=== PATIENT | female | born 1970 | race Caucasian/White ===

== ENCOUNTER → 2017-10-24 12:20 | Outpatient (REF) | payer OTHER, SELFPAY ==
[2017-10-24 21:47] LABS: TSH (W/Ref FT4) 1.01 uIU/mL (0.358-3.74)
== END ==
LOC: NCHCN 12:20
PROVIDERS: PCP Family Medicine; Visit Provider Family Medicine
DX: E03.9 Hypothyroidism, unspecified (principal)
CPT/HCPCS: 84443

== ENCOUNTER 2017-12-24 18:23 | Outpatient (REF) | payer OTHER, SELFPAY ==
[2017-12-24 19:34] LABS: HCT 34.5 % (36.0-46.0); HGB 10.7 g/dL (12.0-15.5); Mean Corpuscular Hemoglobin 27.2 pg (27.0-33.0); Mean Corpuscular Volume 87.6 fL (80-95); Mean Platelet Volume 12.2 fL (8.0-11.0); Platelet Count 264 x1000/uL (130-400); RBC 3.94 m/cumm (4.00-5.20); RBC Distribution Width 15.6 % (11.7-14.6); White Blood Cell Count 7.22 k/cumm (4.4-10.8)
[2017-12-24 19:45] LABS: Iron 29 ug/dL (50-175); Total Iron Binding Capacity 509 ug/dL (250-450); Transferrin Sat 6 % (15-50)
[2017-12-24 19:58] LABS: Ferritin 10 ng/mL (8-388)
== END 2017-12-24 18:43 ==
LOC: NCHCN 18:23
PROVIDERS: PCP Family Medicine; Visit Provider Family Medicine
DX: D50.9 Iron deficiency anemia, unspecified (principal)
CPT/HCPCS: 85027; 82728; 83540; 83550

== ENCOUNTER 2018-01-28 13:20 | Outpatient (CLI) | payer OTHER, SELFPAY ==
--- NOTE | 2018-01-28 12:01 | DI.RAD_ITS ---
SYMPTOM/DIAGNOSIS: COMMUNITY ACQUIRED PNEUMONIA J18.9 CHEST X-RAY: PA and lateral. Comparison is 08/29/[address] scan 06/01/17 Heart size and pulmonary vasculature are within normal limits. The lungs are clear and well expanded. No effusions or pneumothoraces are identified. IMPRESSION: No acute pulmonary process.
== END 2018-01-28 13:40 ==
PROVIDERS: PCP Family Medicine; Visit Provider Family Medicine
DX: J18.9 Pneumonia, unspecified organism (principal)
CPT/HCPCS: 71046

== ENCOUNTER 2018-03-04 10:02 | Outpatient (REF) | payer OTHER, SELFPAY ==
[2018-03-06 11:59] LABS: IgA 233 mg/dL (85-499); Interpretation SEE COMMENTS; Tissue Transglutaminase IgA <1.2 U/mL (<4.0)
== END 2018-03-04 10:22 ==
LOC: NCHCN 10:02
PROVIDERS: PCP Family Medicine; Visit Provider Family Medicine
DX: D50.9 Iron deficiency anemia, unspecified (principal)
CPT/HCPCS: 82784; 83516

== ENCOUNTER 2018-05-23 12:12 | Outpatient (REF) | payer OTHER, SELFPAY ==
[2018-05-23 12:35] LABS: Abs Immature Grans 0.01 k/cumm (0.0-0.09); Absolute Basophil Count 0.03 k/cumm (0.0-0.2); Absolute Eosinophil Count 0.03 k/cumm (0.0-0.7); Absolute Lymphocyte Count 1.26 k/cumm (1.2-3.4); Absolute Monocyte Count 0.85 k/cumm (0.11-0.7); Absolute Neutrophil Count 2.84 k/cumm (1.2-6.7); Basophils % 0.6; Eosinophils % 0.6; HCT 33.7 % (36.0-46.0); HGB 10.6 g/dL (12.0-15.5); Immature Grans % 0.2; Lymphocytes % 25.1; Mean Corp. HGB Concentration 31.5 g/dL (32.0-36.0); Mean Corpuscular Volume 88.9 fL (80-95); Mean Platelet Volume 11.2 fL (8.0-11.0); Monocytes % 16.9; Neutrophils % 56.6; Platelet Count 236 x1000/uL (130-400); RBC 3.79 m/cumm (4.00-5.20); RBC Distribution Width 16.5 % (11.7-14.6); White Blood Cell Count 5.02 k/cumm (4.4-10.8)
== END 2018-05-23 12:32 ==
LOC: NCHCN 12:12
PROVIDERS: PCP Family Medicine; Visit Provider Nurse Practitioner Family
DX: D50.9 Iron deficiency anemia, unspecified (principal)
CPT/HCPCS: 85025

== ENCOUNTER 2018-06-12 12:28 | Outpatient (REF) | payer OTHER, SELFPAY ==
[2018-06-13 11:34] LABS: TSH 1.44 uIU/mL (0.358-3.74)
[2018-06-13 14:58] LABS: Chlamydia Result Negative; GC Result Negative; Specimen Description URINE
[2018-06-14 12:21] LABS: Syphilis Serology (RPR) Negative (Negative)
[2018-06-14 12:50] LABS: HIV-1/2 Ag & Ab Screen Negative (NEGAT)
[2018-06-17 11:31] LABS: Hepatitis B Surface Ag Negative (NEGAT)
== END 2018-06-12 12:48 ==
LOC: NCHCN 12:28
PROVIDERS: PCP Family Medicine; Visit Provider Family Medicine
DX: E03.9 Hypothyroidism, unspecified (principal); Z00.00 Encounter for general adult medical examination without abnormal findings; Z11.4 Encounter for screening for human immunodeficiency virus [HIV]; Z11.59 Encounter for screening for other viral diseases; D50.9 Iron deficiency anemia, unspecified; Z11.3 Encounter for screening for infections with a predominantly sexual mode of transmission
CPT/HCPCS: 87340; 87389; 87491; 87591; 84443; 86592

== ENCOUNTER 2018-06-27 18:09 | Outpatient (REF) | payer OTHER, SELFPAY ==
[2018-06-27 19:01] LABS: Anion Gap 10.5 mmol/L (3-11); BUN 21 mg/dL (7-18); CO2 26.5 mmol/L (21.0-32.0); CREATININE 0.84 mg/dL (0.55-1.02); Calcium 9.6 mg/dL (8.5-10.1); Chloride 97 mmol/L (98-107); Glucose 95 mg/dL (70-100); Sodium 134 mmol/L (136-145)
== END 2018-06-27 18:29 ==
LOC: NCHCN 18:09
PROVIDERS: PCP Family Medicine; Visit Provider Family Medicine
DX: Z00.00 Encounter for general adult medical examination without abnormal findings (principal)
CPT/HCPCS: 80048

== ENCOUNTER 2019-05-06 14:26 | Outpatient (CLI) | payer BC, SELFPAY ==
--- NOTE | 2019-05-06 14:38 | DI.RAD_ITS ---
EXAM: XR SHOULDER RT COMPLETE 2+V INDICATION: R SHOULDER PAIN. COMPARISON: No exams were available for comparison TECHNIQUE: 2D digital imaging was performed. FINDINGS: There is spurring at the AC joint. There is also lucency in the distal clavicle. There is mild spur ring at the glenohumeral joint, which is well maintained. There is a small calcification or spur at the greater tuberosity. IMPRESSION: AC joint degenerative changes and arthritis. Calcific tendinosis.
== END 2019-05-06 14:46 ==
PROVIDERS: PCP Family Medicine; Visit Provider Physician Assistant
DX: M25.511 Pain in right shoulder (principal); M19.011 Primary osteoarthritis, right shoulder; M75.31 Calcific tendinitis of right shoulder
CPT/HCPCS: 73030

== ENCOUNTER 2019-12-09 11:43 | Outpatient (REF) | payer OTHER, SELFPAY ==
[2019-12-09 19:05] LABS: Anion Gap 7.5 mmol/L (3-11); BUN 13 mg/dL (7-18); CO2 29.5 mmol/L (21.0-32.0); CREATININE 0.94 mg/dL (0.55-1.02); Calcium 9.2 mg/dL (8.5-10.1); Calculated LDL 135 mg/dL (<100); Chloride 102 mmol/L (98-107); Cholesterol 213 mg/dL (<200); Glucose 94 mg/dL (74-106); HDL Cholesterol 51 mg/dL (40-60); Hemoglobin A1C 5.9 % (<5.7); Potassium 3.9 mmol/L (3.5-5.1); Sodium 139 mmol/L (136-145); TSH (W/Ref FT4) 1.17 uIU/mL (0.36-3.74); Triglyceride 135 mg/dL (<150)
[2019-12-09 20:26] LABS: Iron 24 ug/dL (50-170); Total Iron Binding Capacity 418 ug/dL (250-450); Transferrin Sat 6 % (15-50)
== END 2019-12-09 12:03 ==
LOC: NCHCN 11:43
PROVIDERS: PCP Family Medicine; Visit Provider Family Medicine
DX: E03.9 Hypothyroidism, unspecified (principal); Z00.00 Encounter for general adult medical examination without abnormal findings; I10 Essential (primary) hypertension; D50.9 Iron deficiency anemia, unspecified; E78.5 Hyperlipidemia, unspecified
CPT/HCPCS: 80048; 80061; 83036; 83540; 83550; 84443

== ENCOUNTER 2020-03-02 01:12 | Outpatient (CLI) | payer OTHER, SELFPAY ==
--- NOTE | 2020-03-02 08:47 | DI.MAMMO_ITS ---
EXAM: MAMMO SCREENING CLINICAL HISTORY: SCREENING, ADULT PREVENTATIVE, CARE,Z00.00 TECHNIQUE: Mammograms were interpreted according to the usual protocol including computer analysis w [employer] CAD system, tomosynthesis and C-view imaging. COMPARISON: FINDINGS: The breasts are moderate density with fairly symmetrical distribution of fibroglandular tissue. Ther e is an area of nodularity projected in the superior cysts portion of the right breast anteriorly in approximately the 12 o'clock position, this may represent a skin lesion but intramammary mass is not excluded. This was not present on prior examination April 2015. No other significant change seen . No clumped microcalcification noted. IMPRESSION: Questionable finding new right breast mass versus skin lesion. Additional mammographic views of the right breast recommended with skin markers and spot compression views if indicated. Additionally, ri t breast ultrasound may be performed if indicated at the time of the additional mammographic views. BI-RADS Category 0 - Assessment Incomplete: Need additional imaging evaluation Breast Density - Category B - Scattered areas of fibroglandular density
== END 2020-03-02 01:32 ==
PROVIDERS: PCP Family Medicine; Visit Provider Family Medicine
DX: Z12.31 Encounter for screening mammogram for malignant neoplasm of breast (principal); R92.8 Other abnormal and inconclusive findings on diagnostic imaging of breast; Z00.00 Encounter for general adult medical examination without abnormal findings
CPT/HCPCS: 77063; 77067

== ENCOUNTER 2020-03-05 01:16 | Outpatient (CLI) | payer OTHER, SELFPAY ==
--- NOTE | 2020-03-05 | DI.MAMMO_ITS ---
EXAM: MG MAMMO SCREEN CALL BACK UNI CLINICAL HISTORY: F/U MAMMO, AREA OF NODULARITY, ? SKIN LESION OR INTRAMAMMARY MASS TECHNIQUE: Spot compression views and tomographic imaging were performed. COMPARISON: 2016 FINDINGS: The breasts are composed of scattered fibroglandular densities, Breast Density category B. There is a persistent smoothly marginated nodule seen in the central superior right breast. There is no evidence of a skin mole. Please see separate ultrasound report. IMPRESSION: BI-RADS Category 3 - 6 month - Probably Benign Finding: Recommend follow-up ultrasound in 6 months. Breast Density - Category B, scattered fibroglandular densities.
--- NOTE | 2020-03-05 | DI.US_ITS ---
EXAM: US BREAST RT LIMITED CLINICAL HISTORY: F/U MAMMO, AREA OF NODULARITY - SKIN LESION VS MASS TECHNIQUE: Ultrasound right breast performed using standard protocol. COMPARISON: MG Screening Bilat Mammo from 04/26/2015 MG Screening Bilat Mammo from 05/03/2015 MG MG MAMMO SCREENING from 03/02/2020 MG MG MAMMO SCREEN CALL BACK UNI from 03/05/2020 FINDINGS: In the 12 o'clock position, 5 centimeters above the nipple, there is a cyst containing some internal debris. There is no vascular flow. It measures 1.5 x 0.7 x 1.4 cm and corresponds to the mammograph ic abnormality. A few other small nodules were seen which could represent small lymph nodes. No solid masses, hypoechoic foci, areas of abnormal shadowing, or areas of skin thickening. IMPRESSION: No sonographically suspicious finding. BI-RADS Category 3 - 6 month - Probably Benign Finding: Recommend follow-up ultrasound in 6 months DATA REPOSITORY:
== END 2020-03-05 01:36 ==
PROVIDERS: PCP Family Medicine; Visit Provider Family Medicine
DX: R92.8 Other abnormal and inconclusive findings on diagnostic imaging of breast (principal); N60.01 Solitary cyst of right breast
CPT/HCPCS: 76642; 77063; 77067

== ENCOUNTER 2020-05-11 09:33 | Outpatient (REF) | payer OTHER, SELFPAY ==
--- NOTE | 2020-05-11 09:30 | ENDOMET_PTH ---
PATIENT: Yarely Gao LOC: [facility] U#:[id number] AGE/SX: 49/F ROOM: RE05/11/[address]: Rosangela Bower : 1970 BED: DIS: 05/11/2020 SPEC #: [id number] RECD: 05/11/20 12:36 STATUS: KIRT REQ #: [id number] CIELO: 05/11/20 09:[address]: Rosangela Bower DEPT: Surgical Specimen RECD BY: Brianna Camara ENTERED: 05/11/20 12:36 SP TYPE: Endomet OTHR DR: Hosea Bella Tissues: 1 - ENDOMETRIUM BX/ADI Procedures: GROSS AND MICRO LEVEL 4 Comments: [id number]
== END 2020-05-11 09:34 | disposition home or self-care (01) ==
LOC: LBN 09:33
PROVIDERS: PCP Family Medicine; Visit Provider Obstetrics & Gynecology Gynecology
DX: N85.8 Other specified noninflammatory disorders of uterus (principal); N83.8 Other noninflammatory disorders of ovary, fallopian tube and broad ligament; N93.8 Other specified abnormal uterine and vaginal bleeding
CPT/HCPCS: 88305

== ENCOUNTER 2020-07-08 12:40 | Outpatient (REF) | payer OTHER, SELFPAY ==
[2020-07-08 14:56] LABS: Bilirubin Negative (Negative); Blood Negative (Negative); Clarity Clear (Clear); Glucose Negative (Negative); Ketones Negative (Negative); Leukocyte Esterase Negative (Negative); Nitrite Negative (Negative); Specific Gravity 1.015 (1.005-1.025); Urobilinogen 0.2 EU/dL (Up TO 0.2); pH 6.5 (5-8)
[2020-07-08 16:01] LABS: Abs Immature Grans 0.01 10^3/uL (0.0-0.06); Absolute Basophil Count 0.05 10^3/uL (0.0-0.2); Absolute Eosinophil Count 0.04 10^3/uL (0.0-0.7); Absolute Lymphocyte Count 1.69 10^3/uL (1.2-3.4); Absolute Monocyte Count 0.79 10^3/uL (0.1-0.8); Basophils % 0.7; Eosinophils % 0.5; HCT 40.3 % (36.0-46.0); HGB 13.1 g/dL (11.2-15.7); Immature Grans % 0.1; Lymphocytes % 23.2; MCH 27.4 pg (27.0-33.0); MCHC 32.5 % (32.0-36.0); MCV 84.3 fL (80-95); MPV 13.4 fL (8.0-11.0); Monocytes % 10.9; Neutrophils % 64.6; Nucleated RBC 0 %; Platelet Count 236 10^3/uL (130-400); RBC 4.78 10^6/uL (3.93-5.22); RDW 17.5 % (11.7-14.6); RDW-SD 53.5 fL; WBC 7.28 10^3/uL (4.4-10.8)
[2020-07-08 16:43] LABS: ALT 27 U/L (14-59); AST 15 U/L (15-37); Albumin 4.2 g/dL (3.4-5.0); Alkaline Phosphatase 69 U/L (46-116); Anion Gap 11.7 mmol/L (3-11); BUN 15 mg/dL (7-18); Bilirubin, Total 0.3 mg/dL (0.2-1.0); CO2 27.3 mmol/L (21.0-32.0); CREATININE 0.8 mg/dL (0.55-1.02); Calcium 9.5 mg/dL (8.5-10.1); Chloride 102 mmol/L (98-107); Glucose 93 mg/dL (74-106); Sodium 141 mmol/L (136-145); Total Protein 7.4 g/dL (6.4-8.2); Uric Acid 4.5 mg/dL (2.6-6.0)
== END 2020-07-08 12:41 | disposition home or self-care (01) ==
LOC: LBN 12:40
PROVIDERS: PCP Family Medicine; Visit Provider Physician Assistant
DX: R10.11 Right upper quadrant pain (principal); R10.31 Right lower quadrant pain; R82.998 Other abnormal findings in urine; N39.0 Urinary tract infection, site not specified; M54.5 Low back pain; M79.674 Pain in right toe(s)
CPT/HCPCS: 80053; 81003; 84550; 85025; 87086

== ENCOUNTER 2020-11-22 11:22 | Outpatient (CLI) | payer OTHER, SELFPAY ==
--- NOTE | 2020-11-22 11:30 | DI.RAD_ITS ---
Exam(s) XR ANKLE LT COMPLETE XR HEEL LT OS CALCIS EXAM: XR ANKLE LT COMPLETE and XR heel LT os calcis CLINICAL HISTORY: injury to left ankle and heel, pain, r/o fx m25.572 TECHNIQUE: 2D digital imaging was performed. COMPARISON: No previous for comparison. FINDINGS: BONES: No acute fracture is present. No bony destructive lesion is seen. JOINTS:The ankle mortise is normally aligned. SOFT TISSUE: Normal. IMPRESSION: No acute fracture or dislocation. DATA REPOSITORY: RADIATION DOSE DELIVERED:
== END 2020-11-22 11:42 ==
PROVIDERS: PCP Family Medicine; Visit Provider Physician Assistant
DX: M25.572 Pain in left ankle and joints of left foot (principal)
CPT/HCPCS: 73610; 73650

== ENCOUNTER 2020-12-01 06:13 | Emergency (ER) | payer OTHER, SELFPAY ==
[2020-12-01 06:16] VITALS: BP 149/75; PULSE 75; RESP 20; TEMP 36.2; O2SAT 97
--- NOTE | 2020-12-01 06:30 | DI.RAD_ITS ---
Exam(s) XR ANKLE LT COMPLETE EXAM: XR ANKLE LT COMPLETE CLINICAL HISTORY: lateral/posterior ankle pain. TECHNIQUE: 2D digital imaging was performed. COMPARISON: CR XR HEEL LT OS CALCIS from 11/22/2020 FINDINGS: Benign bone island is noted in the calcaneus. There is no evidence of fracture or widening of the mo rtise. Talar dome appears unremarkable. No degenerative changes evident. No osseous lesions. IMPRESSION: DATA REPOSITORY: RADIATION DOSE DELIVERED:
--- NOTE | 2020-12-01 06:50 | W.ED.GENAD ---
Discharge Plan Disposition Patient Disposition: HOME Condition: Good Discharge Details Clinical Impression: Acute left ankle pain Primary Care Provider: Hosea Bella ED Provider: Ray Cain Home Meds and New Rx's Prescriptions: Continued spironolactone 25 mg tablet 25 mg PO DAILY RF: 0 hydrochlorothiazide 12.5 mg tablet 25 mg PO DAILY RF: 0 clonidine HCl 0.1 mg tablet 0.1 mg PO QHS Qty: 30 RF: 1 cyclobenzaprine 10 mg tablet 10 mg PO TID PRN (Reason: muscle spasm) Qty: 10 RF: 0 multivitamin [Daily Multi-Vitamin] 1 EACH tablet 1 ea PO daily prn RF: 0 riboflavin (vitamin B2) 400 MG tablet 400 mg PO DAILY RF: 0 polyethylene glycol 3350 [Miralax] 17 gram powder in packet 17 g PO PRN Qty: 255 RF: 0 levothyroxine [Synthroid] 88 MCG tablet 88 mcg PO DAILY RF: 0 Discharge Instructions Instructions: Ankle Sprain (ED) Additional Instructions: At this time your x-ray shows no significant abnormality for the bones. I suspect there is a combination of a bony contusion as well as a mild ligamentous injury. For the next week please remain nonweightbearing with your crutches, then gradually transition to weightbearing as tolerated with your walking boot. Take Tylenol and Motrin as needed for pain. Ice your ankle regularly. We have placed a referral with the music therapy specialist. They will contact you for the appointment date. If you notice any worsening of your symptoms, or any new symptoms such as vomiting, diarrhea, fever, chills, shortness of breath, chest pain, numbness, weakness, or fainting , please return immediately to the emergency department for reevaluation. Please follow up with your primary care provider as soon as possible for reassessment and reevaluation. As always, it was a pleasure participating in your medical care today. Referrals: Hosea Waters MD [ [facility] STAFF PHYSICIAN] - Discharge Data Discharge Date/Time-TO BE ENTERED AT DEPARTURE: 12/01/20 07:39 Medical Decision Making 50-year-old female presents today with evaluate for evaluation of left ankle pain. About 1 month ago the patient got a dog leash wrapped around her ankle, because of pain at that time. Walking boot was notably helpful then, the ventral x-ray was negative for acute process. Patient had been doing well until today when she was walking down her stairs and slipped and felt like she again twisted her ankle. She did not hear any pop. She denies any other significant trauma. Pain is located at the medial aspect of the left ankle. She has mild pain with movement but no significant pain with weightbearing. She denies pain in the foot or in the tib/fib. The walking boot which used to help no longer gives any significant help for pain relief. Patient has no other complaints at this time. No other modifying factors. Exam demonstrates normal strength in the foot, and ankle. Achilles tendon appears to have normal strength and no evidence of rupture. No significant tenderness on palpation. The mechanism slightly atypical for a bony injury however with her pain mainly being her weightbearing and concerned. We will get an x-ray to rule out acute process. Additionally to this I do feel that she has high likelihood of ligamentous or tendon injury in general with her previous injury now being worsened by this new episode. Will give crutches, and recommend nonweightbearing for the next 1 to 2 weeks with slow gradual transition to weightbearing as tolerated with her walking boot. Will place orthopedic referral for further assessment. Patient has established care with Dr. Waters already for her knee. FINDINGS: Benign bone island is noted in the calcaneus. There is no evidence of fracture or widening of the mortise. Talar dome appears unremarkable. No degenerative changes evident. No osseous lesions. HPI General Date/Time Provider Initiated Documentation: 12/01/20 06:14. HPI Narrative: 50-year-old female presents today with evaluate for evaluation of left ankle pain. About 1 month ago the patient got a dog leash wrapped around her ankle, because of pain at that time. Walking boot was notably helpful then, the ventral x-ray was negative for acute process. Patient had been doing well until today when she was walking down her stairs and slipped and felt like she again twisted her ankle. She did not hear any pop. She denies any other significant trauma. Pain is located at the medial aspect of the left ankle. She has mild pain with movement but no significant pain with weightbearing. She denies pain in the foot or in the tib/fib. The walking boot which used to help no longer gives any significant help for pain relief. Patient has no other complaints at this time. No other modifying factors. Related Data Home Medications Medication Instructions Recorded Confirmed multivitamin [Daily Multi-Vitamin] 1 ea PO daily prn 05/18/14 12/01/20 riboflavin (vitamin B2) 400 mg PO DAILY 06/14/17 12/01/20 levothyroxine [Synthroid] 88 mcg PO DAILY 07/13/17 12/01/20 spironolactone 25 mg tablet 25 mg PO DAILY 04/21/19 12/01/20 clonidine HCl 0.1 mg tablet 0.1 mg PO QHS #30 tab 05/11/20 11/20/20 hydrochlorothiazide 12.5 mg tablet 25 mg PO DAILY tab 05/11/20 12/01/20 polyethylene glycol 3350 17 gram 17 g PO PRN #255 g 05/11/20 12/01/20 oral powder packet cyclobenzaprine 10 mg tablet 10 mg PO TID PRN #10 tab 07/08/20 11/20/20 Previous Rx's Medication Instructions Recorded clonidine HCl 0.1 mg tablet 0.1 mg PO QHS #30 tab 05/11/20 cyclobenzaprine 10 mg tablet 10 mg PO TID PRN #10 tab 07/08/20 Allergies Allergy/AdvReac Type Severity Reaction Status Date / Time ranitidine Allergy Severe MOUTH Verified 12/01/20 06:23 SWELLS lisinopril Allergy Intermediate Verified 12/01/20 06:23 walnuts AdvReac Intermediate rash, Uncoded 12/01/20 06:23 hives, throat tightness General Stated Complaint: Orthopedic IMELDA: 4 Review of Systems All systems reviewed & are unremarkable except as noted in HPI and below PFSH Medical History Abnormal uterine bleeding 2016 bleeding between cycles. EMBx weakly prolif endometrium. Nl appearing uterus. 03/2019 menorrhagia with anemia. ADD (attention deficit disorder) Anemia Aphthae, oral Arthritis Endometriosis of pelvis Hyperlipidemia Hypertension Hypothyroidism Knee pain, chronic Migraine headache with aura Mucinous adenocarcinoma of gastrointestinal tract Multiple skin nodules Post-traumatic stress syndrome Subacromial bursitis Vasomotor symptoms due to menopause 05/11/20. Clonidine 0.1mg Surgical History Appendectomy (01/01/15) ERIC Endometrial Biopsy 05/18/14-NEG History of tubal ligation Family History Mother Essential hypertension Asthma Father Diabetes Essential hypertension Hyperlipidemia Sister Graves disease Heart disease Pacemaker 03/2013 Sarcoidosis Grandfather Heart disease Stroke Grandfather Diabetes Grandmother Essential hypertension Heart disease Grandmother Graves disease Diabetes Social History Smoking/Tobacco Use Status: Former Tobacco Use Smoking risk assessment performed?: Yes Alcohol Intake: current Alcohol Intake frequency: holidays/special occasions only Drug use: Never Current gender identity: female Do you feel safe at home: Yes Do you feel safe in your relationship?: Yes Exam Narrative Exam Narrative: 1.Const: Well-nourished, Well-developed, appearing stated age 2.Eyes: PERRL, no conjunctival injection, and symmetrical lids. 3.ENT: Atraumatic external nose and ears. Moist MM. Neck: Symmetric, trachea midline, No thyromegaly. 4.CVS: +S1/S2, No murmurs or gallops. Peripheral pulses 2+ and equal in all extremities. Brisk capillary refill in all extremities. 5.RESP: Unlabored respiratory effort. Clear to auscultation bilaterally. No wheezes rales or rhonchi 6.GI: Soft, Nontender/Nondistended, No hepatosplenomegaly. No guarding or rebound. 7.MSK: Patient's left ankle demonstrates minimal swelling of the medial aspect, minimal pain with palpation. Patient demonstrates good flexion and extension of the foot, as well as flexion and extension of all toes including the great toe. Patient demonstrates good eversion and inversion strength of the foot as well. Mild pain with dorsiflexion, inversion, and plantar flexion. Patient has notable pain with weightbearing. Location of pain appears to be between the talus and the calcaneus. Sensation intact throughout. Bedside ultrasound demonstrates what appears to be an intact Achilles tendon. Normal strength of the foot. 8.Skin: Warm, Dry. No rashes or lesions. 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 Sensation grossly intact, no focal neurologic deficits. 10.Psych: (AAO) x3. Appropriate mood and affect Course Vital Signs Vital signs: Vital Signs Temperature 36.2 C L 12/01/20 06:16 Pulse 75 12/01/20 06:16 Respiratory Rate 20 12/01/20 06:16 Blood Pressure 149/75 H 12/01/20 06:16 Pulse Oximetry 97 12/01/20 06:16 Temperature 36.2 C L 12/01/20 06:16 Temperature Source Temporal Artery Scan 12/01/20 06:16 Pulse 75 12/01/20 06:16 Respiratory Rate 20 12/01/20 06:16 Respiratory Effort Non-Labored 12/01/20 06:21 Blood Pressure 149/75 H 12/01/20 06:16 Blood Pressure Position Sitting 12/01/20 06:16 Pulse Oximetry 97 12/01/20 06:16 Oxygen Delivery Method Room Air 12/01/20 06:16 Oxygen Flow Rate 0 12/01/20 06:16 Pain Level 5 12/01/20 06:16
--- NOTE | 2020-12-01 08:50 | DI.VRAD_ITS ---
PROCEDURE INFORMATION: Exam: XR Left Ankle Exam date and time: 12/01/2020 6:34 AM Age: 50 years old Clinical indication: Injury or trauma; Fall; Blunt trauma; Left; Injury date: 12/01/20; Injury details: Lateral/posterior ankle pain TECHNIQUE: Imaging protocol: XR Left ankle. Views: 3 or more views. COMPARISON: CR XR ANKLE LT COMPLETE 11/22/2020 2:46 PM FINDINGS: Bones/joints: Normal. Soft tissues: Normal. IMPRESSION: No acute findings. Dictated and Authenticated by: Cali Hall MD. Ordering:ANY Bell MD
== END 2020-12-01 07:39 | disposition home or self-care (01) ==
PROVIDERS: Emergency Provider Student in an Organized Health Care Education/Training Program; PCP Family Medicine
DX: M25.572 Pain in left ankle and joints of left foot (principal); X50.9XXA Other and unspecified overexertion or strenuous movements or postures, initial encounter
CPT/HCPCS: 99283; 73610

== ENCOUNTER 2020-12-14 18:38 | Outpatient (REF) | payer OTHER, SELFPAY ==
[2020-12-14 22:06] LABS: Iron 81 ug/dL (50-170); Total Iron Binding Capacity 390 ug/dL (250-450); Transferrin Sat 21 % (15-50)
[2020-12-14 22:07] LABS: ALT 35 U/L (14-59); AST 19 U/L (15-37); Albumin 4.3 g/dL (3.4-5.0); Alkaline Phosphatase 82 U/L (46-116); Anion Gap 11.6 mmol/L (3-11); BUN 18 mg/dL (7-18); Bilirubin, Total 0.2 mg/dL (0.2-1.0); CO2 30.4 mmol/L (21.0-32.0); Calcium 9.2 mg/dL (8.5-10.1); Chloride 101 mmol/L (98-107); Estimated GFR 58.45 (mL/min/1.73m2); Glucose 90 mg/dL (74-106); Potassium 3.8 mmol/L (3.5-5.1); Sodium 143 mmol/L (136-145); TSH (W/Ref FT4) 0.29 uIU/mL (0.36-3.74); Total Protein 7.8 g/dL (6.4-8.2)
[2020-12-14 22:09] LABS: Hemoglobin A1C 5.9 % (<5.7)
[2020-12-14 22:23] LABS: FREE T4 1.22 ng/dL (0.76-1.46)
== END 2020-12-14 18:39 | disposition home or self-care (01) ==
LOC: LBN 18:38
PROVIDERS: PCP Family Medicine; Visit Provider Family Medicine
DX: E03.9 Hypothyroidism, unspecified (principal); D50.9 Iron deficiency anemia, unspecified; Z00.00 Encounter for general adult medical examination without abnormal findings
CPT/HCPCS: 80053; 83036; 83540; 83550; 84439; 84443

== ENCOUNTER 2020-12-20 08:30 | Outpatient (REF) | payer OTHER, SELFPAY | END 2020-12-20 08:31 | disposition home or self-care (01) | LOC: LBN 08:30 | PROVIDERS: PCP Family Medicine; Visit Provider Family Medicine | DX: B35.1 Tinea unguium (principal) | CPT/HCPCS: 87101; 87206 ==

== ENCOUNTER 2021-01-24 09:24 | Outpatient (CLI) | payer OTHER, SELFPAY ==
--- NOTE | 2021-01-24 08:30 | DI.RAD_ITS ---
Exam(s) XR FOOT LT LIMITED EXAM: XR FOOT LT LIMITED CLINICAL HISTORY: left ankle pain. TECHNIQUE: 2D digital imaging was performed. COMPARISON: CR,XR XR ANKLE LT COMPLETE from 12/01/2020 CR,XR XR ANKLE LT COMPLETE from 12/01/2020 FINDINGS: Single lateral left foot perform weight-bearing reveals no evidence of fracture nor prominent pes yimi nus. Benign bone island in the calcaneus is unchanged from ankle films of November 2020. There is no inferior calcaneal spur. No obvious osseous tarsal coalition. IMPRESSION: DATA REPOSITORY: RADIATION DOSE DELIVERED:
== END 2021-01-24 09:25 | disposition home or self-care (01) ==
LOC: DIORS 09:24
PROVIDERS: PCP Family Medicine; Referring Provider Family Medicine; Visit Provider Physician Assistant
DX: M25.572 Pain in left ankle and joints of left foot (principal)
CPT/HCPCS: 73620

== ENCOUNTER 2021-02-08 08:36 | Outpatient (CLI) | payer OTHER, SELFPAY ==
--- NOTE | 2021-02-08 15:04 | DI.MRI_ITS ---
Exam(s) MR LOWER JOINT LT WO EXAM: MR LOWER JOINT LT WO CLINICAL HISTORY: PAIN, INSUFFICIENCY LT POSTERIOR TIBIAL TENDON, ACUTE LT ANKLE PAIN. TECHNIQUE: Multiplanar multisequence MRI was performed.. COMPARISON: Plain films left ankle 01 December 2020 FINDINGS: BONES/JOINTS: No evidence of fracture. No evidence of bone lesion. No joint space narrowing identifie d. A small tibiotalar joint effusion is identified. LIGAMENTS: The deltoid and spring ligaments are intact without definite associated edema. MUSCULOTENDINOUS STRUCTURES: No tendon thickening or focal tear. Minimal amount of fluid around the distal tibialis posterior and flexor digitorum tendons. The planar fascia is unremarkable. Peroneal tendons and anterior SOFT TISSUES: Unremarkable. OTHER FINDINGS: None. IMPRESSION: Small tibiotalar joint effusion. Minimal amount of fluid adjacent to the distal tibialis posterior and flexor digitorum tendons withou t visible tendinosis or focal tear. DATA REPOSITORY:
== END 2021-02-08 08:56 ==
PROVIDERS: PCP Family Medicine; Visit Provider Student in an Organized Health Care Education/Training Program
DX: M79.605 Pain in left leg (principal); M25.572 Pain in left ankle and joints of left foot; M25.472 Effusion, left ankle; M67.874 Other specified disorders of tendon, left ankle and foot
CPT/HCPCS: 73721

== ENCOUNTER 2021-02-23 13:45 | Outpatient (REF) | payer OTHER, SELFPAY ==
[2021-02-24 02:16] LABS: COVID-19 RT-PCR UVMMC Result Negative (Negative)
== END 2021-02-23 13:46 | disposition home or self-care (01) ==
LOC: LBN 13:45
PROVIDERS: PCP Family Medicine; Visit Provider Nurse Practitioner Family
DX: Z20.822 Contact with and (suspected) exposure to COVID-19 (principal)
CPT/HCPCS: U0003

== ENCOUNTER 2021-04-05 00:51 | Outpatient (CLI) | payer OTHER, SELFPAY ==
--- NOTE | 2021-04-05 | DI.MAMMO_ITS ---
Exam(s) MAMMO SCREENING EXAM: MAMMO SCREENING CLINICAL HISTORY: SCREENING, ADULT PREVENTIVE CARE,Z00.00 TECHNIQUE: Mammograms were interpreted according to the usual protocol including computer analysis w [employer] CAD system, tomosynthesis and C-view imaging. COMPARISON: FINDINGS: The breasts are of moderate density with fairly symmetrical distribution of fibroglandular tissue. N o dominant mass or clumped microcalcification is identified in either breast. The current examinatio n is compared with previous examinations including February 2020 and there has been no gross interval change in appearance in comparison with the prior studies. IMPRESSION: No specific evidence of malignancy at this time. Routine screening examinations are suggested at yea rly intervals in this age group according to the ACS ACR guidelines. BI-RADS Category 1 - Negative Breast Density - Category B - Scattered areas of fibroglandular density
== END 2021-04-05 01:11 ==
PROVIDERS: PCP Family Medicine; Visit Provider Family Medicine
DX: Z12.31 Encounter for screening mammogram for malignant neoplasm of breast (principal)
CPT/HCPCS: 77063; 77067

== ENCOUNTER 2021-04-27 11:52 | Outpatient (REF) | payer OTHER, SELFPAY ==
[2021-04-28 14:19] LABS: COVID-19 RT-PCR UVMMC Result Negative (Negative)
== END 2021-04-27 11:53 | disposition home or self-care (01) ==
LOC: LBN 11:52
PROVIDERS: PCP Family Medicine; Visit Provider Physician Assistant
DX: Z20.822 Contact with and (suspected) exposure to COVID-19 (principal)
CPT/HCPCS: U0003

== ENCOUNTER 2021-04-28 15:31 | Outpatient (REF) | payer OTHER, SELFPAY ==
[2021-04-30 01:24] LABS: COVID-19 RT-PCR UVMMC Result Negative (Negative)
== END 2021-04-28 15:32 | disposition home or self-care (01) ==
LOC: LBN 15:31
PROVIDERS: PCP Family Medicine; Visit Provider Physician Assistant
DX: Z20.822 Contact with and (suspected) exposure to COVID-19 (principal)
CPT/HCPCS: U0003

== ENCOUNTER 2021-09-20 15:25 | Outpatient (REF) | payer OTHER, SELFPAY ==
[2021-09-20 14:46] LABS: HCT 40.3 % (36.0-46.0); HGB 13.7 g/dL (11.2-15.7); MCH 31.1 pg (27.0-33.0); MCV 92 fL (80-95); MPV 12.2 fL (8.0-11.0); Platelet Count 226 10^3/uL (130-400); RDW 12.3 % (11.7-14.6); RDW-SD 41.3 fL; WBC 7.13 10^3/uL (4.4-10.8)
[2021-09-20 15:21] LABS: Iron 111 ug/dL (50-170); Total Iron Binding Capacity 336 ug/dL (250-450); Transferrin Sat 33 % (15-50)
[2021-09-20 15:27] LABS: Anion Gap 6.1 mmol/L (3-11); BUN 22 mg/dL (7-18); CO2 31.9 mmol/L (21.0-32.0); CREATININE 0.6 mg/dL (0.55-1.02); Calcium 9.4 mg/dL (8.5-10.1); Chloride 100 mmol/L (98-107); Glucose 103 mg/dL (74-106); Potassium 3.6 mmol/L (3.5-5.1); Sodium 138 mmol/L (136-145); TSH (W/Ref FT4) 0.56 uIU/mL (0.36-3.74)
[2021-09-20 15:48] LABS: Hemoglobin A1C 5.8 % (<5.7)
== END 2021-09-20 15:26 | disposition home or self-care (01) ==
LOC: NCHCN 15:25
PROVIDERS: PCP Family Medicine; Visit Provider Family Medicine
DX: E03.9 Hypothyroidism, unspecified (principal); R73.03 Prediabetes; I10 Essential (primary) hypertension; D50.9 Iron deficiency anemia, unspecified
CPT/HCPCS: 80048; 85027; 83036; 83540; 83550; 84443

== ENCOUNTER 2021-10-24 12:27 | Outpatient (CLI) | payer OTHER, SELFPAY ==
--- NOTE | 2021-10-24 12:15 | DI.RAD_ITS ---
Exam(s) XR KNEE LT 3V AP,LAT,LORENA EXAM: XR KNEE LT 3V AP,LAT,LORENA CLINICAL HISTORY: left knee pain TECHNIQUE: COMPARISON: CR LEFT KNEE 3 VIEW COMPLETE from 11/08/2011 FINDINGS: Three views were obtained. Cartilaginous joint spaces appear fairly well maintained. No knee joint effusion seen on the lateral view. No bony or soft tissue abnormality seen. IMPRESSION: RADIATION DOSE DELIVERED: Total DLP
== END 2021-10-24 12:28 | disposition home or self-care (01) ==
LOC: DIORS 12:27
PROVIDERS: PCP Family Medicine; Referring Provider Family Medicine; Visit Provider Physician Assistant
DX: M25.562 Pain in left knee (principal)
CPT/HCPCS: 73562

== ENCOUNTER → 2021-11-15 01:28 | Outpatient (CLI) | payer OTHER, SELFPAY ==
--- NOTE | 2021-11-15 07:15 | DI.MRI_ITS ---
Exam(s) MR LOWER JOINT LT WO EXAM: MR LOWER JOINT LT WO CLINICAL HISTORY: PAIN,INTERNAL DERANGEMENT LT KNEE, M23.92 TECHNIQUE: Multiplanar multisequence MRI was performed.. COMPARISON: MR MRI L LOWER JOINT WO CONT from 05/02/2016 FINDINGS: MR examination of the knee was performed according to the usual protocol. There is a small knee joint effusion. No significant bony signal abnormality seen. Medial tibiofemoral joint: The articular cartilage of the femur and tibia appears mildly thinned with out focal defect. The meniscus and attachments appear intact. The medial collateral ligament appear s intact. No posteromedial corner injury seen. Lateral tibiofemoral joint: The articular cartilage of the femur and tibia appears mildly thinned wit hout focal defect. The meniscus and attachments appear intact. The lateral collateral ligament comp shiva and posterolateral corner structures appear intact. Patellofemoral joint and extensor mechanism: The articular cartilage of the patellofemoral joint appe ars intact. The superior and inferior patellar fat pads appear normal with no signal abnormality. The quadriceps tendon and patellar tendon appear intact with no evidence of a tear or significant radha ma. The medial and lateral retinacula appear intact. Cruciate ligaments: Cruciate ligaments and attachments appear normal with no evidence of a tear. Tibiofibular joint: No specific abnormality involving the tibiofibular joint. IMPRESSION: Probable slight articular cartilage thinning of medial tibial femoral joint and lateral tibiofemoral joint. No evidence of internal derangement.. DATA REPOSITORY:
== END ==
PROVIDERS: PCP Family Medicine; Visit Provider Student in an Organized Health Care Education/Training Program
DX: M25.562 Pain in left knee (principal)
CPT/HCPCS: 73721

== ENCOUNTER 2021-12-15 09:44 | Outpatient (REF) | payer OTHER, SELFPAY ==
[2021-12-16 15:14] LABS: Varicella Zoster DNA Result Negative ((See Note))
== END 2021-12-15 09:45 | disposition home or self-care (01) ==
LOC: LBN 09:44
PROVIDERS: PCP Family Medicine; Visit Provider Nurse Practitioner Family
DX: R21 Rash and other nonspecific skin eruption (principal)
CPT/HCPCS: 87798

== ENCOUNTER 2022-02-28 12:05 | Outpatient (REF) | payer OTHER, SELFPAY ==
--- NOTE | 2022-02-28 11:40 | PAPFT_PTH ---
PATIENT: Yarely Gao LOC: [facility] U#:[id number] AGE/SX: 51/F ROOM: RE02/28/[address]: Rosangela Bower : 1970 BED: DIS: 02/28/2022 SPEC #: [id number] RECD: 02/28/22 12:48 STATUS: KIRT REQ #: [id number] CIELO: 02/28/22 11:[address]: Rosangela Bower DEPT: [facility] Cytology RECD BY: Brianna Camara ENTERED: 02/28/22 12:49 SP TYPE: PAPFT OTHR DR: Hosea Bella Tissues: 1 - CX/ENDOCX FOR PAP SMEARS Procedures: PAP THIN PREP/UVM Screening HPV DNA PROBE Comments: [id number]
== END 2022-02-28 12:06 | disposition home or self-care (01) ==
LOC: LBN 12:05
PROVIDERS: PCP Family Medicine; Visit Provider Obstetrics & Gynecology Gynecology
DX: Z12.4 Encounter for screening for malignant neoplasm of cervix (principal); Z11.51 Encounter for screening for human papillomavirus (HPV)
CPT/HCPCS: 88142; 87624

== ENCOUNTER 2022-04-11 01:44 | Outpatient (CLI) | payer OTHER, SELFPAY ==
--- NOTE | 2022-04-11 08:10 | DI.MAMMO_ITS ---
Exam(s) MAMMO SCREENING EXAM: MAMMO SCREENING CLINICAL HISTORY: screening. TECHNIQUE: Bilateral full field digital CC and MLO mammographic images were obtained with 3D tomosyn thesis and utilizing computer aided detection (CAD). COMPARISON: Prior mammograms were reviewed. Ultrasound examination of September 2021 also reviewed. FINDINGS: There has been no significant change in the appearance and distribution of the fibroglandular tissue. Asymmetric tissue in the left breast is unchanged. In the right breast there are 2 adjacent peripherally calcified benign oil cysts. These exhibit prog ression of mural calcification when compared to 1 year ago. There are additional calcifications asso ciated with the outer wall of the larger of the two benign-appearing oil cysts, these also increased. Require spot Mag view. There are no new spiculated masses nor malignant appearing microcalcification groups. There is no significant architectural distortion nor skin thickening-retraction. IMPRESSION: 1. No radiographic evidence of malignancy in left breast. 2. Right breast finding as above. Spot Mag 2D view both CC and MLO planes recommended to determine i f this is a separate but immediately adjacent microcalcification group (relative to the benign calcif ied oil cyst). BI-RADS Category 0 - Assessment Incomplete: Need additional imaging evaluation Breast Density - Category B - Scattered areas of fibroglandular density Breast density Category C or D implies that the patient has dense breast tissue. Dense breast tissue can make it harder to find cancer on a mammogram. Dense breast tissue is also associated with an incr eased risk of breast cancer. This information about the result of the mammogram report was provided to the patient to raise their awareness. Use this report when you speak with the patient about their risks for breast cancer, which includes their family history. At that time, you may recommend additional screening tests (Ultrasoun d or MRI) as these tests may add significant information. A negative radiographic report should not delay biopsy if a dominant or clinically suspicious mass is present. Up to ten percent of cancers are not identified on mammography. A negative report may reinforce clinical impression. Adenosis and dense breasts may obscure an underlying neoplasm. False positive reports average 6 to 10%. Patient will receive a letter notifying them of these results.
== END 2022-04-11 02:04 ==
LOC: DI 01:44
PROVIDERS: PCP Family Medicine; Visit Provider Obstetrics & Gynecology Gynecology
DX: Z12.31 Encounter for screening mammogram for malignant neoplasm of breast (principal); R92.0 Mammographic microcalcification found on diagnostic imaging of breast
CPT/HCPCS: 77063; 77067

== ENCOUNTER 2022-04-14 00:49 | Outpatient (CLI) | payer OTHER, SELFPAY ==
--- NOTE | 2022-04-14 | DI.MAMMO_ITS ---
Exam(s) MG MAMMO SCREEN CALL BACK UNI EXAM: MG MAMMO SCREEN CALL BACK UNI CLINICAL HISTORY: F/U MAMMO, PROGRESSION OF MURAL CALCIFICATION/ADDITIONAL CALCIFICATIONS. TECHNIQUE: Craniocaudal and mediolateral oblique spot magnification mammography views of the right b reast with Computer Aided Diagnosis. COMPARISON: Comparison is made with prior examinations. FINDINGS: Mammography/Tomosynthesis: Masses/Architectural Distortion: None seen. Microcalcifictions: In the area of the oil cyst, there have been an increase in number of calcificati ons present. There are nonspecific. Skin Thickening/Nipple Retraction: None. IMPRESSION: 1. Increased number of calcifications associated with old oil cyst. 2. A 3 month follow-up right mammogram is recommended for re-evaluation of these microcalcifications. 3. The findings were discussed with the patient on the date of the examination. BI-RADS Category 3 - Probably Benign Finding: Recommend follow-up imaging in 3 months Breast Density - Category B - Scattered areas of fibroglandular density Breast density Category C or D implies that the patient has dense breast tissue. Dense breast tissue can make it harder to find cancer on a mammogram. Dense breast tissue is also associated with an incr eased risk of breast cancer. This information about the result of the mammogram report was provided to the patient to raise their awareness. Use this report when you speak with the patient about their risks for breast cancer, which includes their family history. At that time, you may recommend additional screening tests (Ultrasoun d or MRI) as these tests may add significant information. A negative radiographic report should not delay biopsy if a dominant or clinically suspicious mass is present. Up to ten percent of cancers are not identified on mammography. A negative report may reinforce clinical impression. Adenosis and dense breasts may obscure an underlying neoplasm. False positive reports average 6 to 10%. Patient will receive a letter notifying them of these results.
== END 2022-04-14 01:09 ==
LOC: DI 00:49
PROVIDERS: PCP Family Medicine; Visit Provider Obstetrics & Gynecology Gynecology
DX: Z12.31 Encounter for screening mammogram for malignant neoplasm of breast (principal); R92.8 Other abnormal and inconclusive findings on diagnostic imaging of breast; R92.1 Mammographic calcification found on diagnostic imaging of breast; N60.01 Solitary cyst of right breast
CPT/HCPCS: 77063; 77067

== ENCOUNTER 2022-07-04 11:27 | Outpatient (REF) | payer OTHER, SELFPAY ==
[2022-07-04 16:39] LABS: Anion Gap 7.4 mmol/L (3-11); BUN 11 mg/dL (7-18); CO2 31.6 mmol/L (21.0-32.0); CREATININE 0.7 mg/dL (0.55-1.02); Calcium 9.1 mg/dL (8.5-10.1); Calculated LDL 115 mg/dL (<100); Chloride 102 mmol/L (98-107); Cholesterol 193 mg/dL (<200); Glucose 86 mg/dL (74-106); HDL Cholesterol 62 mg/dL (40-60); Sodium 141 mmol/L (136-145); TSH (W/Ref FT4) 0.93 uIU/mL (0.36-3.74); Triglyceride 82 mg/dL (<150)
== END 2022-07-04 11:28 | disposition home or self-care (01) ==
LOC: NCHCN 11:27
PROVIDERS: PCP Family Medicine; Visit Provider Family Medicine
DX: E03.9 Hypothyroidism, unspecified (principal); I10 Essential (primary) hypertension; Z00.00 Encounter for general adult medical examination without abnormal findings; Z13.220 Encounter for screening for lipoid disorders
CPT/HCPCS: 80048; 80061; 84443

== ENCOUNTER 2022-07-17 00:34 | Outpatient (CLI) | payer OTHER, SELFPAY ==
--- NOTE | 2022-07-17 | DI.MAMMO_ITS ---
Exam(s) MG MAMMO DIAGNOSTIC UNI EXAM: MG MAMMO DIAGNOSTIC UNI CLINICAL HISTORY: 3 MO F/U,MICROCALCIFICATIONS,F/U ABNL MAMMO, R92.0. TECHNIQUE: Craniocaudal and mediolateral oblique Full Field Digital Mammography views of the right b reast with Computer Aided Diagnosis followed by Tomosynthesis. COMPARISON: Comparison is made with prior examinations. FINDINGS: Mammography/Tomosynthesis: Masses/Architectural Distortion: None seen. Microcalcifictions: No suspicious pleomorphic-type are seen. There is again seen an oil cyst in the u pper central right breast. The surrounding calcifications appears stable. Skin Thickening/Nipple Retraction: None. IMPRESSION: 1. No evidence of malignancy is noted. 2. A six-month follow-up right mammogram is recommended for re-evaluation. 3. The findings were discussed with the patient on the date of the examination. BI-RADS Category 3 - 6 month - Probably Benign Finding: Recommend follow-up imaging in 6 months Breast Density - Category B - Scattered areas of fibroglandular density Breast density Category C or D implies that the patient has dense breast tissue. Dense breast tissue can make it harder to find cancer on a mammogram. Dense breast tissue is also associated with an incr eased risk of breast cancer. This information about the result of the mammogram report was provided to the patient to raise their awareness. Use this report when you speak with the patient about their risks for breast cancer, which includes their family history. At that time, you may recommend additional screening tests (Ultrasoun d or MRI) as these tests may add significant information. A negative radiographic report should not delay biopsy if a dominant or clinically suspicious mass is present. Up to ten percent of cancers are not identified on mammography. A negative report may reinforce clinical impression. Adenosis and dense breasts may obscure an underlying neoplasm. False positive reports average 6 to 10%. Patient will receive a letter notifying them of these results.
== END 2022-07-17 00:54 ==
LOC: DI 00:35
PROVIDERS: PCP Family Medicine; Visit Provider Obstetrics & Gynecology Gynecology
DX: R92.0 Mammographic microcalcification found on diagnostic imaging of breast (principal)
CPT/HCPCS: 77061; 77065; G0279

== ENCOUNTER 2022-09-06 16:18 | Outpatient (REF) | payer OTHER, SELFPAY ==
[2022-09-06 21:33] LABS: HCT 37.3 % (36.0-46.0); HGB 12.8 g/dL (11.2-15.7); MCH 31.5 pg (27.0-33.0); MCHC 34.3 % (32.0-36.0); MCV 92 fL (80-95); MPV 11.9 fL (8.0-11.0); Platelet Count 209 10^3/uL (130-400); RBC 4.06 10^6/uL (3.93-5.22); RDW 12.3 % (11.7-14.6); RDW-SD 41.8 fL; WBC 6.95 10^3/uL (4.4-10.8)
== END 2022-09-06 16:19 | disposition home or self-care (01) ==
LOC: NCHCN 16:18
PROVIDERS: PCP Family Medicine; Visit Provider Family Medicine
DX: D64.9 Anemia, unspecified (principal)
CPT/HCPCS: 85027; 83540; 83550

== ENCOUNTER 2022-09-08 09:15 | Outpatient (REF) | payer OTHER, SELFPAY ==
[2022-09-08 13:14] LABS: Iron 116 ug/dL (50-170); Total Iron Binding Capacity 311 ug/dL (250-450); Transferrin Sat 37 % (15-50)
== END 2022-09-08 09:16 | disposition home or self-care (01) ==
LOC: NCHCN 09:15
PROVIDERS: PCP Family Medicine; Visit Provider Family Medicine
DX: D64.9 Anemia, unspecified (principal)
CPT/HCPCS: 83540; 83550

== ENCOUNTER 2022-12-27 09:17 | Outpatient (REF) | payer OTHER, SELFPAY ==
[2022-12-27 16:15] LABS: ESR (LRH) 11 mm/hr
== END 2022-12-27 09:18 | disposition home or self-care (01) ==
LOC: NCHCN 09:17
PROVIDERS: PCP Family Medicine; Visit Provider Family Medicine
DX: G57.52 Tarsal tunnel syndrome, left lower limb (principal); M19.90 Unspecified osteoarthritis, unspecified site
CPT/HCPCS: 85652

== ENCOUNTER → 2023-01-10 03:18 | Outpatient (CLI) | payer OTHER, SELFPAY ==
--- NOTE | 2023-01-10 | DI.MAMMO_ITS ---
Exam(s) MAMMO DIAGNOSTIC UNI EXAM: MAMMO DIAGNOSTIC UNI CLINICAL HISTORY: F/U MAMMO, 6 MO F/U,R92.0,MICROCALCIFICATIONS. TECHNIQUE: Craniocaudal and mediolateral oblique Full Field Digital Mammography views of the right b reast with Computer Aided Diagnosis followed by Tomosynthesis. COMPARISON: Comparison is made with prior examinations. FINDINGS: Mammography/Tomosynthesis: Masses/Architectural Distortion: None seen. Microcalcifictions: No suspicious pleomorphic-type are seen. Benign type calcifications are seen in t he right breast. Skin Thickening/Nipple Retraction: None. IMPRESSION: 1. No evidence of malignancy is noted. 2. Unless there is more urgent need, follow-up screening mammography is recommended, as per [employer] guidelines. 3. The findings were discussed with the patient on the date of the examination. BI-RADS Category 2 - Benign Findings Breast Density - Category B - Scattered areas of fibroglandular density Breast density Category C or D implies that the patient has dense breast tissue. Dense breast tissue can make it harder to find cancer on a mammogram. Dense breast tissue is also associated with an incr eased risk of breast cancer. This information about the result of the mammogram report was provided to the patient to raise their awareness. Use this report when you speak with the patient about their risks for breast cancer, which includes their family history. At that time, you may recommend additional screening tests (Ultrasoun d or MRI) as these tests may add significant information. A negative radiographic report should not delay biopsy if a dominant or clinically suspicious mass is present. Up to ten percent of cancers are not identified on mammography. A negative report may reinforce clinical impression. Adenosis and dense breasts may obscure an underlying neoplasm. False positive reports average 6 to 10%. Patient will receive a letter notifying them of these results.
== END ==
PROVIDERS: PCP Family Medicine; Visit Provider Obstetrics & Gynecology Gynecology
DX: Z12.31 Encounter for screening mammogram for malignant neoplasm of breast (principal); R92.323 Mammographic fibroglandular density, bilateral breasts; R92.0 Mammographic microcalcification found on diagnostic imaging of breast
CPT/HCPCS: 77061; 77065; G0279

== ENCOUNTER → 2023-05-01 01:27 | Outpatient (CLI) | payer OTHER, SELFPAY ==
--- NOTE | 2023-05-01 06:30 | DI.MRI_ITS ---
Exam(s) MR LOWER JOINT LT WO EXAM: MR LOWER JOINT LT WO CLINICAL HISTORY: PAIN,internal derangement lt knee, m23.92. TECHNIQUE: Multiplanar multisequence MRI was performed. COMPARISON: MR MR LOWER JOINT LT WO from 11/15/2021 FINDINGS: BONES: There is no fracture or contusion pattern. JOINTS: A small joint effusion is present. Articular cartilage: Patellofemoral joint: Mild cartilage thinning. No focal defect. Medial femoral tibial joint: Mild cartilage thinning. No focal defect. Lateral femoral tibial joint: Articular cartilage is unremarkable. TENDONS: Extensor mechanism: Unremarkable. Medial retinaculum: Unremarkable. Lateral retinaculum: Unremarkable. Popliteus: Unremarkable. MUSCLES: Unremarkable. MENISCI: The medial meniscus shows a small amount of intrasubstance signal in the body and posterior horn but no evidence of tear. The lateral meniscus is unremarkable. SOFT TISSUES: Tiny popliteal cyst. LIGAMENTS: Anterior Cruciate: Unremarkable. Posterior Cruciate: Unremarkable. Medial Collateral:Unremarkable. Lateral Collateral: Unremarkable. IMPRESSION: Mild cartilage thinning of the patellofemoral medial femoral tibial joint. Degenerative intrasubstan ce signal changes in the medial meniscus without evidence of discrete tear. DATA REPOSITORY:
== END ==
PROVIDERS: PCP Family Medicine; Visit Provider Student in an Organized Health Care Education/Training Program
DX: R93.6 Abnormal findings on diagnostic imaging of limbs (principal)
CPT/HCPCS: 73721

== ENCOUNTER 2023-07-18 11:54 | Outpatient (REF) | payer OTHER, SELFPAY ==
[2023-07-18 20:55] LABS: HCT 38.7 % (36.0-46.0); HGB 13.5 g/dL (11.2-15.7); MCH 32.1 pg (27.0-33.0); MCHC 34.9 % (32.0-36.0); MCV 92 fL (80-95); MPV 11.6 fL (8.0-11.0); Platelet Count 176 10^3/uL (130-400); RDW 11.7 % (11.7-14.6); RDW-SD 39.7 fL; WBC 5.66 10^3/uL (4.4-10.8)
[2023-07-18 21:24] LABS: Hemoglobin A1C 5.7 % (<5.7)
[2023-07-18 21:26] LABS: ALT 52 U/L (14-59); AST 25 U/L (15-37); Alkaline Phosphatase 66 U/L (46-116); Anion Gap 7.5 mmol/L (3-11); BUN 17 mg/dL (7-18); Bilirubin, Total 0.3 mg/dL (0.2-1.0); CO2 30.5 mmol/L (21.0-32.0); CREATININE 0.7 mg/dL (0.55-1.02); Calcium 9.1 mg/dL (8.5-10.1); Chloride 104 mmol/L (98-107); Estimated GFR 102.71 (mL/min/1.73m2); Glucose 93 mg/dL (74-106); Potassium 4.1 mmol/L (3.5-5.1); Sodium 142 mmol/L (136-145); TSH (W/Ref FT4) 0.71 uIU/mL (0.36-3.74); Total Protein 7.1 g/dL (6.4-8.2)
== END 2023-07-18 11:55 | disposition home or self-care (01) ==
LOC: LBN 11:54
PROVIDERS: PCP Nurse Practitioner Family; Visit Provider Nurse Practitioner Family
DX: D64.9 Anemia, unspecified (principal); E03.9 Hypothyroidism, unspecified; E78.5 Hyperlipidemia, unspecified; R73.03 Prediabetes
CPT/HCPCS: 80053; 85027; 83036; 84443

== ENCOUNTER → 2023-08-07 01:07 | Outpatient (CLI) | payer OTHER, SELFPAY ==
--- NOTE | 2023-08-07 06:30 | DI.MAMMO_ITS ---
Exam(s) MAMMO SCREENING EXAM: MAMMO SCREENING CLINICAL HISTORY: screening,z12.39. TECHNIQUE: Bilateral full field digital CC and MLO mammographic images were obtained with 3D tomosyn thesis and utilizing computer aided detection (CAD). COMPARISON: Prior mammograms were reviewed. FINDINGS: There has been no significant change in the appearance and distribution of the fibroglandular tissue. Benign oil cyst in the right breast is unchanged. There are no new spiculated masses nor malignant appearing microcalcification groups. There is no significant architectural distortion nor skin thickening-retraction. IMPRESSION: No radiographic evidence of malignancy. Small benign findings. BI-RADS Category 2 - Benign Findings Breast Density - Category B - Scattered areas of fibroglandular density Breast density Category C or D implies that the patient has dense breast tissue. Dense breast tissue can make it harder to find cancer on a mammogram. Dense breast tissue is also associated with an incr eased risk of breast cancer. This information about the result of the mammogram report was provided to the patient to raise their awareness. Use this report when you speak with the patient about their risks for breast cancer, which includes their family history. At that time, you may recommend additional screening tests (Ultrasoun d or MRI) as these tests may add significant information. A negative radiographic report should not delay biopsy if a dominant or clinically suspicious mass is present. Up to ten percent of cancers are not identified on mammography. A negative report may reinforce clinical impression. Adenosis and dense breasts may obscure an underlying neoplasm. False positive reports average 6 to 10%. Patient will receive a letter notifying them of these results.
== END ==
PROVIDERS: PCP Nurse Practitioner Family; Visit Provider Nurse Practitioner Family
DX: Z12.39 Encounter for other screening for malignant neoplasm of breast (principal); R73.03 Prediabetes
CPT/HCPCS: 77063; 77067

== ENCOUNTER 2023-11-13 09:47 | Outpatient (CLI) | payer OTHER, SELFPAY ==
--- NOTE | 2023-11-13 10:30 | DI.MRI_ITS ---
Exam(s) MR UPPER JOINT LT WO EXAM: MR UPPER JOINT LT WO CLINICAL HISTORY: no improvement with PT,lt shoulder pain, m25.512. TECHNIQUE: Multiplanar multisequence MRI was performed. COMPARISON: None. FINDINGS: BONES: There is no fracture or contusion pattern. JOINTS:The acromioclavicular joint shows minimal degenerative changes.. The glenohumeral joint is no rmal. TENDONS: Supraspinatus: Thickening high signal anteriorly consistent with tendinitis. Infraspinatus: Unremarkable. Subscapularis: Unremarkable. [place]: Unremarkable. Biceps and [place]: Unremarkable. MUSCLES: Unremarkable. GLENOID LABRUM: Unremarkable on this noncontrast examination. SOFT TISSUES: Unremarkable. OTHER: Subacromial and subdeltoid bursae shows minimal fluid.. IMPRESSION: Supraspinatus tendonitis. DATA REPOSITORY:
== END 2023-11-13 10:07 ==
LOC: DI 09:48
PROVIDERS: PCP Nurse Practitioner Family; Visit Provider Family Medicine
DX: M75.22 Bicipital tendinitis, left shoulder (principal)
CPT/HCPCS: 73221

== ENCOUNTER 2023-12-04 15:30 | Outpatient (CLI) | payer OTHER, SELFPAY ==
--- NOTE | 2023-12-04 13:19 | DI.RAD_ITS ---
Exam(s) XR SHOULDER LT COMPLETE 2+V EXAM: XR SHOULDER LT COMPLETE 2+V CLINICAL HISTORY: left shoulder pain. TECHNIQUE: 2D digital imaging was performed. Three views. COMPARISON: CR XR SHOULDER RT COMPLETE 2+V from 05/06/2019 MR MR UPPER JOINT LT WO from 11/13/2023 FINDINGS: BONES: No acute fracture is present. No bony destructive lesion is seen. JOINTS: No dislocation present. Minimal spurring at the AC joint. Glenohumeral joint space is maint ained. SOFT TISSUE: Normal. IMPRESSION: Mild degenerative changes. DATA REPOSITORY: RADIATION DOSE DELIVERED:
== END 2023-12-04 15:31 | disposition home or self-care (01) ==
LOC: DIORS 15:30
PROVIDERS: PCP Nurse Practitioner Family; Visit Provider Physician Assistant
DX: M25.512 Pain in left shoulder (principal)
CPT/HCPCS: 73030

== ENCOUNTER 2024-03-03 18:50 | Outpatient (REF) | payer OTHER, SELFPAY | END 2024-03-03 18:51 | disposition home or self-care (01) | LOC: LBN 18:50 | PROVIDERS: PCP Nurse Practitioner Family; Visit Provider Nurse Practitioner Family | DX: Z77.011 Contact with and (suspected) exposure to lead (principal) | CPT/HCPCS: 83655 ==

== ENCOUNTER 2024-07-04 22:01 | Outpatient (REF) | payer OTHER, SELFPAY ==
[2024-07-04 21:44] LABS: TSH (W/Ref FT4) 1.51 uIU/mL (0.36-3.74)
== END 2024-07-04 22:02 | disposition home or self-care (01) ==
LOC: LBN 22:01
PROVIDERS: PCP Nurse Practitioner Family; Visit Provider Nurse Practitioner Family
DX: E03.9 Hypothyroidism, unspecified (principal)
CPT/HCPCS: 84443

== ENCOUNTER 2024-08-12 00:48 | Outpatient (CLI) | payer OTHER, SELFPAY ==
--- NOTE | 2024-08-12 08:05 | DI.MAMMO_ITS ---
Exam(s) MAMMO SCREENING EXAM: MAMMO SCREENING CLINICAL HISTORY: screening Z12.39 TECHNIQUE: Mammograms were interpreted according to the usual protocol including computer analysis w [employer] CAD system, tomosynthesis and C-view imaging. COMPARISON: 2015 through 2023 FINDINGS: The breasts are composed of scattered fibroglandular densities, Breast Density category B. No suspicious masses or suspicious microcalcifications are seen. No skin thickening or abnormal axillary lymph nodes are seen. There has been no significant change from prior exams. IMPRESSION: BI-RADS Category 1, Negative mammogram Yearly screening mammography is recommended. Breast Density - Category B, scattered fibroglandular densities. Breast density Category C or D implies that the patient has dense breast tissue. Dense breast tissue can make it harder to find cancer on a mammogram. Dense breast tissue is also associated with an incr eased risk of breast cancer. This information about the result of the mammogram report was provided to the patient to raise their awareness. Use this report when you speak with the patient about their risks for breast cancer, which includes their family history. At that time, you may recommend additional screening tests (Ultrasoun d or MRI) as these tests may add significant information. A negative radiographic report should not delay biopsy if a dominant or clinically suspicious mass is present. Up to ten percent of cancers are not identified on mammography. A negative report may reinforce clinical impression. Adenosis and dense breasts may obscure an underlying neoplasm. False positive reports average 6 to 10%. Patient will receive a letter notifying them of these results.
== END 2024-08-12 01:08 ==
LOC: DI 00:48
PROVIDERS: PCP Nurse Practitioner Family; Visit Provider Nurse Practitioner Family
DX: Z12.31 Encounter for screening mammogram for malignant neoplasm of breast (principal); R92.323 Mammographic fibroglandular density, bilateral breasts
CPT/HCPCS: 77063; 77067

== ENCOUNTER 2025-03-02 14:30 | Outpatient (CLI) | payer OTHER, SELFPAY ==
[2025-03-02 16:02] LABS: Hemoglobin A1C 5.1 % (<5.7)
[2025-03-02 16:06] LABS: TSH (W/Ref FT4) 0.90 uIU/mL (0.55-4.78)
== END 2025-03-02 14:31 | disposition home or self-care (01) ==
LOC: LOS 14:30
PROVIDERS: PCP Nurse Practitioner Family; Visit Provider Nurse Practitioner Family
DX: R73.03 Prediabetes (principal); E03.9 Hypothyroidism, unspecified
CPT/HCPCS: 36415; 83036; 84443

== ENCOUNTER 2025-03-13 15:41 | Outpatient (REF) | payer OTHER, SELFPAY ==
[2025-03-13 21:05] LABS: HCT 36.5 % (36.0-46.0); HGB 11.9 g/dL (11.2-15.7); MCH 30.4 pg (27.0-33.0); MCHC 32.6 % (32.0-36.0); MCV 93 fL (80-95); MPV 11.7 fL (8.0-11.0); Platelet Count 186 10^3/uL (130-400); RBC 3.92 10^6/uL (3.93-5.22); RDW 12.4 % (11.7-14.6); RDW-SD 42.6 fL; WBC 5.43 10^3/uL (4.4-10.8)
[2025-03-13 21:33] LABS: ALT 26 U/L (10-49); AST 23 U/L (<34); Albumin 4.1 g/dL (3.2-5.0); Alkaline Phosphatase 96 U/L (46-116); Anion Gap 10 mmol/L (3-11); BUN 18 mg/dL (9-23); Bilirubin, Total 0.2 mg/dL (0.2-1.2); CO2 27.0 mmol/L (20.0-31.0); Calcium 8.8 mg/dL (8.3-10.6); Chloride 105 mmol/L (98-107); Glucose 91 mg/dL (74-106); Potassium 3.9 mmol/L (3.5-5.1); Sodium 142 mmol/L (136-145); Total Protein 6.4 g/dL (5.7-8.2)
== END 2025-03-13 15:42 | disposition home or self-care (01) ==
LOC: LBN 15:41
PROVIDERS: PCP Nurse Practitioner Family; Visit Provider Nurse Practitioner Family
DX: R42 Dizziness and giddiness (principal); E78.5 Hyperlipidemia, unspecified
CPT/HCPCS: 80053; 85027